=== PATIENT | male | born 1955 | race Caucasian/White ===

== ENCOUNTER 2021-10-05 14:27 | Observation (INO) ==
[2021-10-05] MEDS ORDERED: Isovue-370 500 ML BOTTLE IVP ONE (16:29)
[2021-10-05 16:40] LABS: Basophils # 0.1 K/mcL (0.0-0.2); Basophils % 0.7 %; Eosinophils # 0.4 K/mcL (0.0-0.6); Hematocrit 38.3 % (37.5-50.1); Hemoglobin 12.6 g/dL (12.9-16.9); Immature Granulocytes % 0.3 % (0-4); Lymphocytes # 1.2 K/mcL (0.6-4.6); Lymphocytes % 12.3 %; Mean Corpuscular HGB Conc 32.9 g/dL (31.6-35.5); Mean Corpuscular Hemoglobin 29.8 pg (28.0-33.3); Mean Corpuscular Volume 90.5 fL (83.0-100.0); Mean Platelet Volume 10.5 fL (9.4-12.4); Monocytes # 0.8 K/mcL (0.0-1.3); Monocytes % 8.7 %; Neutrophils # 6.9 K/mcL (1.6-8.9); Platelet Count 281 K/mcL (140-400); Red Blood Count 4.23 M/mcL (4.19-5.50); Red Cell Distribution Width 12.1 % (11.5-14.5); White Blood Count 9.3 K/mcL (4.3-11.1)
[2021-10-05 16:51] LABS: INR 1.3; Prothrombin Time 14.6 Seconds (9.4-12.1)
[2021-10-05 16:54] LABS: Activated Partial Thrombo Time 32.3 Seconds (26.0-36.0)
[2021-10-05 17:02] LABS: Alanine Aminotransferase 8 Units/L (7-52); Albumin 3.5 g/dL (3.5-5.7); Albumin/Globulin Ratio 0.9 (1.1-2.2); Alkaline Phosphatase 57 Units/L (34-104); Aspartate Amino Transferase 12 Units/L (13-39); BUN/Creatinine Ratio 22 (6-26); Bilirubin,Total 0.5 mg/dL (0.3-1.0); Blood Urea Nitrogen 16 mg/dL (8-23); Calcium 10.1 mg/dL (8.6-10.3); Carbon Dioxide 34 mEq/L (23-29); Chloride 99 mEq/L (98-107); Globulin 3.7 g/dL (2.4-3.5); Glucose 275 mg/dL (70-105); Magnesium 1.1 mg/dL (1.6-2.6); Osmolality,Calculated 289 (280-300); Potassium 3.9 mEq/L (3.5-5.1); Sodium 134 mEq/L (136-145); Total Protein 7.2 g/dL (6.4-8.9); eGFR For African Americans > 60 (> 60); eGFR For Non-African Americans > 60 (> 60)
[2021-10-05 17:38] LABS: Influenza A PCR Negative (Negative); Influenza B PCR Negative (Negative); Resp. Syncytial Virus PCR Negative (Negative)
[2021-10-05 17:53] LABS: SARS-CoV-2 by PCR (In House) Positive (Negative)
[2021-10-05 18:14] LABS: Troponin I < 0.03 ng/mL (< 0.04)
[2021-10-05 18:18] LABS: Thyroid Stimulating Hormone 2.069 mcIU/mL (0.340-5.600)
[2021-10-05] MEDS ORDERED: levETIRAcetam 1,000 MG in 0.9 % Sodium Chloride 100 ML IVPB ONE (20:47)
[2021-10-06] MEDS ORDERED: Ipratropium/Albuterol Neb 3 ML IH ONE ×2 (00:10→21:25)
[2021-10-06] MEDS ORDERED: Albuterol 2.5 MG/3 ML NEBULIZER IH ONE ×2 (09:41→15:00)
[2021-10-06] MEDS ORDERED: Nicotine 14 MG PATCH.TD24 TD STA (15:08)
[2021-10-06] MEDS ORDERED: Ondansetron ODT 4 MG TAB.RAPDIS SL PRN (23:58)
[2021-10-06] MEDS ORDERED: Naloxone 0.4 MG/ML INJ IVP PRN (23:58)
[2021-10-06] MEDS ORDERED: Melatonin 3 MG TABLET PO PRN (23:58)
[2021-10-06] MEDS ORDERED: Acetaminophen 325 MG TABLET PO PRN (23:58)
[2021-10-07] MEDS ORDERED: *HR* Dextrose 50 % in Water (Syg) 50 ML SYRINGE IVP PRN ×2 (00:04→07:48)
[2021-10-07] MEDS ORDERED: D5% in Water 1,000 ML IVC PRN (00:04)
[2021-10-07] MEDS ORDERED: Dextrose Gel 15 GM/37.5 ML TUBE PO PRN ×2 (00:04)
[2021-10-07] MEDS ORDERED: Insulin LISPRO 300 UNITS/3 ML VIAL SUBQ SCH ×2 (00:15→08:00)
[2021-10-07 01:07] LABS: Basophils % 0.1 %; Hemoglobin 12.3 g/dL (12.9-16.9); Immature Granulocytes % 0.7 % (0-4); Lymphocytes # 0.4 K/mcL (0.6-4.6); Lymphocytes % 3.8 %; Mean Corpuscular HGB Conc 33.2 g/dL (31.6-35.5); Mean Corpuscular Hemoglobin 29.6 pg (28.0-33.3); Mean Corpuscular Volume 88.9 fL (83.0-100.0); Mean Platelet Volume 10.6 fL (9.4-12.4); Monocytes # 0.4 K/mcL (0.0-1.3); Neutrophils # 8.4 K/mcL (1.6-8.9); Nucleated Red Blood Cells 0.2 /100 WBC (0); Platelet Count 279 K/mcL (140-400); Red Blood Count 4.16 M/mcL (4.19-5.50); Segmented Neutrophils % 91.4 %; White Blood Count 9.2 K/mcL (4.3-11.1)
[2021-10-07] MEDS ORDERED: Insulin DETEMIR 100 UNIT/ML X5UNITS SUBQ SCH ×2 (02:00→09:00)
[2021-10-07] MEDS ORDERED: Ipratropium/Albuterol Neb 3 ML IH PRN (02:36)
[2021-10-07 02:47] LABS: BUN/Creatinine Ratio 22 (6-26); Blood Urea Nitrogen 19 mg/dL (8-23); Calcium 10.2 mg/dL (8.6-10.3); Carbon Dioxide 27 mEq/L (23-29); Chloride 94 mEq/L (98-107); Glucose 428 mg/dL (70-105); Osmolality,Calculated 299 (280-300); Sodium 134 mEq/L (136-145); eGFR For African Americans > 60 (> 60); eGFR For Non-African Americans > 60 (> 60)
[2021-10-07 07:53] VITALS: BP 136/87; PULSE 86; TEMP 97.9; O2SAT 97
== END 2021-10-07 11:00 | disposition short-term general hospital (02) ==
LOC: EMEROOARM 14:27 → 2ANU 14:27 → SUATTDRO 10-06 23:11 → 2ANU 10-06 23:50
PROVIDERS: ADMIT Internal Medicine; ATTEND Internal Medicine